=== PATIENT | female | born 1990 | race American Indian/Alaskan Native ===

== ENCOUNTER 2020-03-27 00:28 | Emergency (ER) | payer MEDICAID ==
[2020-03-27 01:16] VITALS: BP 106/69
== END 2020-03-27 02:05 | disposition left against medical advice (07) ==
LOC: ED 00:28
DX: M79.601 Pain in right arm (principal); E11.9 Type 2 diabetes mellitus without complications; Z53.21 Procedure and treatment not carried out due to patient leaving prior to being seen by health care provider
CPT/HCPCS: 82962